=== PATIENT | female | born 1950 | race Caucasian/White ===

== ENCOUNTER 2017-11-13 00:10 | Inpatient (IN) | payer OTHER ==
[~2017-11-13] VITALS: Ht 152.4 cm; Wt 49.5 kg
[2017-11-13] VITALS (9 sets, daily range): BP systolic 96–206; BP diastolic 41–92
[~2017-11-13 00:10] MED LIST: ALBUTEROL2.5 MG/0.5 INH; ASPIR 8181 MG PO; ASPIRIN325 PO; AZITHROMYCIN 2250 MG; AZITHROMYCIN 2250 MG PO; CARDIZEM CD120 MG PO; DILTIAZEM 24HR120 M2 PO; DOXYCYCLINE 10100 MG PO; DUONEB 2.5-0.5 M3 ML INH; FOLIC ACID1 MG PO; HYDROCODONE-APA1 TA1 PO; LEVAQUIN 500 M500 M2 PO; LEVAQUIN 750 M750 MG PO; MEDROLDOSEPACK PO; MINOCYCLINE HC100 M2 PO; PREDNISONE 10 M10 MG; PREDNISONE 10 M10 MG PO; PREDNISONE 20 M20 MG PO; PREDNISONE10 MG PO; PREDNISONE50 MG PO; PROAIR HFA8.5 GM INH; PROPAFENONE 15150 MG PO; PROTONIX40 M1 PO; TENORMIN25 MG PO; TENORMIN50 MG PO; VENTOLIN HFA 1818 GM INH; VITAMIN B-1100 M1 PO
[2017-11-13] MEDS ORDERED: PROAIR HFA8.5 GM INH (00:16)
[2017-11-13 00:37] LABS: HEMATOCRIT 40.4 % (37.0-47.0); HEMOGLOBIN 13.2 gm/dL (12.0-15.0); MCH 30.6 pg (26.0-34.0); MCHC 32.7 g/dL (28.0-37.0); MCV 93.6 fL (80.0-100.0); MPV 7.5 fl. (7.2-11.1); NUCLEATED RBCS 0 /100WBC; PLATELET COUNT* 261 thou/uL (150-400); RBC 4.31 mil/uL (4.20-5.00); RDW-CV 14.6 % (10.5-14.5); WBC 9.4 thou/uL (4.0-11.0)
[2017-11-13 00:47] LABS: ANION GAP 4 mmol/L (7-16); BUN 12 mg/dL (7-18); CALCIUM 9.1 mg/dL (8.5-10.1); CHLORIDE 102 mmol/L (98-107); CO2 37 mmol/L (21-32); CREATININE 0.6 mg/dL (0.6-1.3); GLUCOSE 142 mg/dL (70-99); POTASSIUM 3.9 mmol/L (3.5-5.1); SODIUM 143 mmol/L (136-145)
[2017-11-13 00:50] LABS: PROTIME 9.5 Seconds (9.20-11.50)
[2017-11-13 00:58] LABS: ALBUMIN 3.8 g/dL (3.4-5.0); ALKALINE PHOSPHATASE 139 U/L (46-116); NT-PRO BRAIN NAT PEPTIDE 39 pg/mL (<300); SGOT 18 U/L (15-37); SGPT 10 U/L (30-65); TOTAL BILIRUBIN 0.3 mg/dL (<0.1-1.0); TOTAL PROTEIN 7.9 g/dL (6.4-8.2); TROPONIN-I LEVEL <0.06 ng/mL (<0.06)
[2017-11-13 01:34] LABS: BE 6.7 mmol/L (-2 to +3); HCO3 33.5 mmol/L (22.0-26.0); PO2 69.4 mmHg (75.0-100.0); pH 7.379 (7.340-7.450)
[2017-11-13 01:34] LABS: ABSOLUTE BASOPHILS 0.1 thou/uL (0.0-0.2); ABSOLUTE MONOCYTES 0.3 thou/uL (0.0-1.2); PLATELET ESTIMATE ADEQUATE; TOXIC GRANULATION 1+
[2017-11-13 01:38] LABS: PCO2 58.1 mmHg (35.0-45.0)
--- NOTE | 2017-11-13 04:52 | NUR ---
PT ADMIT TO ROOM 210. PT ALERT ORIENTED. AMBULATED FROM CART TO BED STEADY GAIT. VERY SOB WITH ANY ACTIVITY. INITALLY O2 AT 2.5 LITERS NC. HAD TO INCREASE TO 3.5 TO HELP RECOVER FROM TRANSFER TO BED. BACK DOWN TO 2.5. TELEMETRY SHOWS SR/ST 90S TO 110. GIGI LEG EDEMA WITH BRUSING ON L 1&2 TOE. US ORDERED OF LOWER EXT. DENIES PAIN. WILL CONTINUE TO MONITOR.
--- NOTE | 2017-11-13 08:30 | NUR ---
RECIEVED REPORT FROM ARIES AND ASSUMED CARE OF PT @ 7412.PT IS A/O X4,VSS,TRACING SR ON MONITOR.LUNG SOUNDS ARE COARSE DIMINSHED WITH LOOSE COUGH.O2 SAT 100% ON 2L O2 NC.PT STATES LAST BM WAS THIS MORNING.IV LEFT HAND PATENT AND SALINE LOCKED.PT IS CALM AND COOPERATIVE WITH NO C/O PAIN AT TIME OF ASSESSMENT.PT IS UP WITH ASSIST TO BSC DUE TO SOA WITH EXERTION. PT HAS VENOUS/ARTERIAL DOPPLER US SCHEDULED TO RULE OUT DVT.PT INFORMED OF PLAN OF CARE AND COMMUNICATES UNDERSTANDING. WILL CONTINUE TO MONITOR.PT LEFT RESTING BED WITH CALL LIGHT WITHIN REACH.
[2017-11-13 13:12] LABS: URINE BILIRUBIN NEGATIVE (Negative); URINE BLOOD NEGATIVE (Negative); URINE CLARITY CLEAR; URINE COLOR YELLOW; URINE GLUCOSE-RANDOM NEGATIVE (Negative); URINE KETONES TRACE (Negative); URINE LEUKOCYTES-REFLEX NEGATIVE (Negative); URINE NITRITE-REFLEX NEGATIVE (Negative); URINE PROTEIN TRACE (Negative); URINE SPECIFIC GRAVITY 1.015 (1.005-1.030); URINE UROBILINOGEN 0.2 E.U./dl (0.2-1.0)
--- NOTE | 2017-11-13 15:48 | NUR ---
CM ASSESSMENT: Pt is A&O. Resides at home and dtr lives with her. Pt is independent with ADLs. Dtr and nephew assist as needed. Pt wears home o2 through [employer]. No hx of HH or SNF. Pt interested in SNF at [place] or . PT/OT to [facility]. Following.
--- NOTE | 2017-11-13 17:19 | 2DMMODE ---
[place] [address] 2 D/M-MODE ECHOCARDIOGRAM Name: BRENT ROLDAN Room: [address] IN [facility]#: [id number] Admission: 11/13/17 Attend Phys: Zulema Kingston, Discharge: Date of : 54 Date of Service: 11/13/17 1718 Report #: [id number] THIS REPORT FOR: //name// APPROVED REPORT Study performed: 11/13/2017 10:54:18 EXAM: Comprehensive 2D, Doppler, and color-flow Echocardiogram Patient Location: In-Patient Room #: [facility] Status: routine BSA: 1.35 HR: 78 bpm BP: 123/68 mmHg Rhythm: NSR Other Information Study Quality: Good Indications Congestive Heart Failure Dyspnea 2D Dimensions LVEF(%): 64.90 (>50%) IVSd: 7.42 (7-11mm) LVOT Diam: 19.48 (18-24mm) LVDd: 40.92 mm PWd: 8.39 (7-11mm) LVDs: 26.56 (25-40mm) Aortic Root: 25.79 mm Au's LVEF: 64.90 % Volumes Left Atrial Volume (Systole) LA ESV Index: 23.70 mL/m2 Aortic Valve AoV Peak Owen.: 1.53 m/s AO Peak Gr.: 9.41 mmHg LVOT Max P.02 mmHg AO Mean Gr.: 4.61 mmHg LVOT Mean P.66 mmHg LVOT Max V: 1.32 m/s AO V2 VTI: 26.28 cm LVOT Mean V: 0.73 m/s ROSIO (VTI): 3.10 cm2 LVOT V1 VTI: 27.37 [place] [address] 2 D/M-MODE ECHOCARDIOGRAM Name: BRENT ROLDAN Room: [address] IN ..#: [id number] Admission: 11/13/17 Attend Phys: Zulema Kingston, Discharge: Date of : 54 Date of Service: 11/13/17 1718 Report #: [id number] E/A Ratio: 1.03 MV Decel. Time: 180.26 ms MV E Max Owen.: 0.88 m/s MV PHT: 52.28 ms MVA (PHT): 4.21 cm2 TDI E/Lateral E': 8.80 E/Medial E': 6.77 Medial E' Owen.: 0.13 m/s Lateral E' Owen.: 0.10 m/s Pulmonary Valve PV Peak Owen.: 0.82 m/s PV Peak Gr.: 2.68 mmHg Tricuspid Valve TR Peak Gr.: 29.32 mmHg RVSP: 34.00 mmHg Left Ventricle The left ventricle is normal size. There is normal LV segmental wall motion. There is normal left ventricular wall thickness. Left ventricular systolic function is normal. The left ventricular ejection fraction is within the normal range. LVEF is 65%. The left ventricular diastolic function is normal. Right Ventricle The right ventricle is normal size. The right ventricular systolic function is normal. Atria The left atrium size is normal. The right atrium size is normal. Aortic Valve The aortic valve is normal in structure. No aortic regurgitation is present. There is no aortic valvular stenosis. Mitral Valve The mitral valve is normal in structure. There is no mitral valve regurgitation noted. No evidence of mitral valve stenosis. Tricuspid Valve The tricuspid valve is normal in structure. Trace tricuspid regurgitation. The RVSP is 30-35 mmHg. Pulmonic Valve The pulmonary valve is normal in structure. [place] [address] 2 D/M-MODE ECHOCARDIOGRAM Name: ROLDANBRENT Latha Room: [address] IN [facility]#: [id number] Admission: 11/13/17 Attend Phys: Zulema Kingston, Discharge: Date of : 54 Date of Service: 11/13/17 1718 Report #: [id number] valvular regurgitation. Great Vessels The aortic root is normal in size. IVC is normal in size and collapses with >50% inspiration Pericardium There is no pericardial effusion. <Conclusion> The left ventricle is normal size. There is normal left ventricular wall thickness. Left ventricular systolic function is normal. The left ventricular ejection fraction is within the normal range. LVEF is 65%. The left ventricular diastolic function is normal. The right ventricle is normal size. The left atrium size is normal. The aortic valve is normal in structure. The mitral valve is normal in structure. The tricuspid valve is normal in structure. Trace tricuspid regurgitation. The RVSP is 30-35 mmHg. IVC is normal in size and collapses with >50% inspiration There is no pericardial effusion. There is normal LV segmental wall motion. <ELECTRONICALLY SIGNED> By: Juanjo Fair MD, FACC 11/13/171717 17 17 Juanjo Fair MD, FACC /INF
--- NOTE | 2017-11-13 17:38 | NUR ---
VSS,CARDIAC MONITORING IN PLACE WITH NO CHANGES THROUGHOUT SHIFT.PT REMAINS ON 2L O2 NC.PT HAS DENIED PAIN THROUGHOUT SHIFT.PT COMPLETED CTA AND ULTRASOUND OF BILATERAL LOWER EXTREMITY REFER TO RESULTS.VASCULAR CONSULT PER DOCTOR ORDERS.PT PROGRESSING TOWARDS GOALS.PT INFORMED OF PLAN OF CARE AND COMMUNICATES UNDERSTANDING.PT GETS UP TO BSC WITH ASSIST OF ONE.HOURLY ROUNDING COMPLETED FOR PT SAFETY. CALL LIGHT WITHIN REACH.WILL CONTINUE TO MONITOR FOR DURATION OF SHIFT.
--- NOTE | 2017-11-14 03:14 | NUR ---
ASSUMED CARE OF PT AT 1900. PT IS ALERT AND ORIENTED. VSS. PERRLA. NO COMPLAINTS OF PAIN. UP WITH STAND BY ASSIST. PT IS CURRENTLY ON 2 LITERS OF O2 AND GETS VERY SOA WITH ANY EXERTION. PT IS IN SINUS RYTHM ON THE TELEMETRY. PT IS RESTING COMFORTABLY IN BED. RESPIRATIONS ARE EVEN AND NONLABORED. WILL CONTINUE TO MONITOR PT.
[2017-11-14 03:49] VITALS: BP 122/61
[2017-11-14 05:25] LABS: ABSOLUTE LYMPHOCYTES 0.3 thou/uL (0.8-5.3); ABSOLUTE MONOCYTES 0.2 thou/uL (0.0-1.2); ABSOLUTE NEUTROPHILS 4.7 thou/uL (1.6-8.1); BASOPHILS 0.1 %; HEMATOCRIT 35.1 % (37.0-47.0); HEMOGLOBIN 11.4 gm/dL (12.0-15.0); LYMPHOCYTES 5.5 %; MCH 30.5 pg (26.0-34.0); MCHC 32.5 g/dL (28.0-37.0); MCV 93.9 fL (80.0-100.0); MONOCYTES 3.3 %; MPV 7.6 fl. (7.2-11.1); NUCLEATED RBCS 0 /100WBC; PLATELET COUNT* 196 thou/uL (150-400); POLYS 91.1 %; RBC 3.74 mil/uL (4.20-5.00); WBC 5.2 thou/uL (4.0-11.0)
[2017-11-14 05:45] LABS: CALCIUM 8.9 mg/dL (8.5-10.1); CREATININE 0.8 mg/dL (0.6-1.3); POTASSIUM 4.6 mmol/L (3.5-5.1)
[2017-11-14 08:15] VITALS: BP 150/64
[2017-11-14 11:31] VITALS: BP 134/67
[2017-11-14 15:53] VITALS: BP 109/56
--- NOTE | 2017-11-14 16:53 | NUR ---
ASSUMED TRANSFER OF CARE AT 1300. AGREE WITH PREVIOUS NURSES ASSESSMENT. ALERT AND ORIENTED X4 AND VSS ON 2 LITERS 02 VIA NASAL CANULA AND IS NSR ON THE MONITOR. IV ANTIBIOTICS INFUSED ORDERED. PATIENT HAS NO PEODUCTIVE COUGH, COURSE LUNG SOUNDS AND HAS SOA UPON EXERTION. PATIENT HAS REDNESS AND SLIGHT EDEMA IN BILATERAL LOWER EXTRMITIES. SUPPORTIVE FAMILY HAS BEEN IN AND OUT THROUGHOUT THE DAY TODAY. PATIENT IS RESTING COMFORTABLY IN BED AT THIS TIME, CALL LIGHT PLACED IN REACH AND NURSING WILL CONTINUE TO MONITOR.
--- NOTE | 2017-11-14 17:19 | EKG ---
[place] [address] ELECTROCARDIOGRAM REPORT Name: BRENT ORLDAN Room: [address] ADM IN [facility].#: [id number] Admission: 11/13/17 Attend Phys: Zulema Kingston MD Discharge: Date of : 54 Report #: [id number] THIS REPORT FOR: //name// [facility] ED Test Date: 2017-11-13 Test Time: 01:01:03 Pat Name: BRENT JAMAR Department: Room: [facility] Gender: F Supervisor Of Research: BRIDGET : 1950 Requested By: Lindsey Altamirano Order Number: [id number] MD: Phoenix Louis Measurements Intervals Buhler Rate: 112 P: MT: QRS: 38 QRSD: 106 T: -19 QT: 301 QTc: 411 Interpretive Statements Sinus rhythm with short MT interval Possible anterior infarct, old Artifact in lead(s) I,III,aVR,aVL,V1,V2,V3,V4 Compared to ECG 10/05/2016 01:06:24 Myocardial infarct finding now present Sinus rhythm no longer present Electronically Signed On 11-14-2017 17:18:51 CDT by Phoenix Louis [email or web address] <ELECTRONICALLY SIGNED> By: Phoenix Louis MD, FACC 11/14/17 1718 0 0 Phoenix Louis MD, FACC /EPI
[2017-11-14 19:45] VITALS: BP 110/54
[2017-11-15] VITALS: BP 137/61
--- NOTE | 2017-11-15 01:49 | NUR ---
ASSUMED CARE OF PT AT 1900. PT IS ALERT AND ORIENTED. VSS. PERRLA. NO COMPLAINTS OF PAIN. UP WITH 1 ASSIST. PT IS IN SINUS RYTHM ON THE TELEMETRY. PT IS RESTING COMFORTABLY IN BED. RESPIRATIONS ARE EVEN AND NONLABORED. WILL CONTINUE TO MONITOR PT.
[2017-11-15 04:00] VITALS: BP 118/59
[2017-11-15 05:04] LABS: ABSOLUTE LYMPHOCYTES 0.8 thou/uL (0.8-5.3); ABSOLUTE MONOCYTES 0.4 thou/uL (0.0-1.2); ABSOLUTE NEUTROPHILS 4.5 thou/uL (1.6-8.1); BASOPHILS 0.5 %; EOSINOPHILS 0.1 %; HEMATOCRIT 34.7 % (37.0-47.0); HEMOGLOBIN 11.4 gm/dL (12.0-15.0); MCH 30.9 pg (26.0-34.0); MCHC 32.9 g/dL (28.0-37.0); MONOCYTES 7.1 %; MPV 7.3 fl. (7.2-11.1); NUCLEATED RBCS 0 /100WBC; PLATELET COUNT* 175 thou/uL (150-400); POLYS 78.3 %; RBC 3.69 mil/uL (4.20-5.00); RDW-CV 14.5 % (10.5-14.5); WBC 5.7 thou/uL (4.0-11.0)
[2017-11-15 06:42] LABS: ALBUMIN 2.8 g/dL (3.4-5.0); CALCIUM 8.5 mg/dL (8.5-10.1); CREATININE 0.8 mg/dL (0.6-1.3); POTASSIUM 3.8 mmol/L (3.5-5.1); TOTAL BILIRUBIN 0.1 mg/dL (<0.1-1.0); TOTAL PROTEIN 5.6 g/dL (6.4-8.2)
[2017-11-15 08:00] VITALS: BP 154/77
[2017-11-15 12:24] VITALS: BP 149/52
[2017-11-15 17:02] VITALS: BP 173/92
--- NOTE | 2017-11-15 18:43 | NUR ---
PATINET RESTING IN BED. UP TO BATHROOM WITH STANDBY ASSIST AND WALKER USAGE. AXO4 AND PATINET APPROPRIATE. IV ABX ORDERED. PAITNET IS UTILIZING 3L PER NC. VITAL SIGNS STABLE AND PATIENT IN NOAPPARENT SIGNS OF DISTRESS AT THIS TIME. CT C RUNOFF WAS COMPLETD TODAY. HOURKY ROUNDING COMPLETED FOR PATIENT SAFETY AND PATIENT IS PROGRESSING TOWARDS GOALS.
[2017-11-15 20:00] VITALS: BP 143/76
[2017-11-16] VITALS: BP 96/47
--- NOTE | 2017-11-16 02:06 | NUR ---
AT 0105, NOTIFIED DR. AG OF NOT ABLE TO PLACE PERIPHERAL IV IN PT. TO PLACE PERIPHERAL IV IN PATIENT. PT UPSET, STATED SHE REFUSED TO ALLOW ANYONE ELSE TO ATTEMPT TO PLACE IV AT THIS TIME. SPOKE WITH DR. AG, NO NEW ORDERS RECEIVED, STATED OK TO WAIT UNTIL MORNING.
--- NOTE | 2017-11-16 03:56 | NUR ---
ASSUMED CARE OF PT AT 1930. NURSING ASSESSMENT COMPLETED AT START OF SHIFT, PT VOICED NO CONCERNS, HOURLY ROUNDING COMPLETED, PT TRACING SINUS RHYTHM ON DIRECTOR OF WORKFORCE DEVELOPMENT THIS SHIFT. DENIES PAIN, CALL LIGHT WITHIN REACH.
[2017-11-16 04:00] VITALS: BP 122/71
[2017-11-16 05:08] LABS: ABSOLUTE LYMPHOCYTES 0.7 thou/uL (0.8-5.3); ABSOLUTE MONOCYTES 0.5 thou/uL (0.0-1.2); ABSOLUTE NEUTROPHILS 3.5 thou/uL (1.6-8.1); EOSINOPHILS 0.1 %; HEMATOCRIT 34.6 % (37.0-47.0); HEMOGLOBIN 11.4 gm/dL (12.0-15.0); LYMPHOCYTES 14.6 %; MCH 30.8 pg (26.0-34.0); MCHC 32.8 g/dL (28.0-37.0); MONOCYTES 10.1 %; MPV 7.2 fl. (7.2-11.1); NUCLEATED RBCS 0 /100WBC; PLATELET COUNT* 177 thou/uL (150-400); POLYS 75.2 %; RBC 3.68 mil/uL (4.20-5.00); RDW-CV 14.2 % (10.5-14.5); WBC 4.7 thou/uL (4.0-11.0)
[2017-11-16 05:18] LABS: CALCIUM 8.5 mg/dL (8.5-10.1); CREATININE 0.8 mg/dL (0.6-1.3); POTASSIUM 3.9 mmol/L (3.5-5.1)
[2017-11-16 08:00] VITALS: BP 160/95
--- NOTE | 2017-11-16 10:29 | NUR ---
Spoke with Pt regarding disposition, informed that she is unable to go to [facility] at [place]. Pt requested that CM speak with Charisse harrington. Contacted juany Mcqueen to tour [facility] and [facility] and let CM know which facility she prefers. Anticipate that Pt will be ready to dc tomorrow.
[2017-11-16 11:38] VITALS: BP 116/68
[2017-11-16 15:34] VITALS: BP 128/73
--- NOTE | 2017-11-16 18:50 | NUR ---
PATIENT RESTING IN BED. UP AD PRO WITH SUPPLEMENTAL OXYGEN. AOX4. HOURLY ROUNDING FOR PATIENT SAFETY AND PATIENT PROGRESSING TOWARDS GOALS. POSSIBLE DC TO SNF.
[2017-11-16 19:46] VITALS: BP 136/64
[2017-11-17] VITALS (7 sets, daily range): BP systolic 116–161; BP diastolic 62–77
--- NOTE | 2017-11-17 04:05 | NUR ---
ASSUMED CARE OF PT AT 1930, NURSING ASSESSMENT COMPLETED AT START OF SHIFT, PT VOICED NO CONCERNS THIS SHIFT, TRACING SINUS RHTYHM THIS SHIFT, HOURLY ROUNDING COMPLETED, CALL LIGHT WITHIN REACH, PT SLOWLY PROGRESSING TOWARDS GOALS.
--- NOTE | 2017-11-17 15:00 | NUR ---
Insurance denied Pt's skilled stay. Updated Dr, plan is for Pt to stay over night and dc home tomorrow with HH. Updated Pt's dtr, will fax orders to [facility] at [place]. Following.
--- NOTE | 2017-11-17 19:01 | NUR ---
PATIENT RESTING IN BED. UP AD LIBIN ROOM. OS AT 3L PER NASAL CANULA. EXPECTED DISCHARGE TO HOME WITH HOME HEALTH TOMORROW. HOURLKY ROUNDING COMPLETD FOR PATIENT SAFET AND PATIENT IS PROGRESSING TOWARDS GOALS.
[2017-11-18 03:58] VITALS: BP 132/78
--- NOTE | 2017-11-18 04:09 | NUR ---
ASSUMED CARE OF PT AT 1930, NURSING ASSESSMENT COMPLETED, PT ANXIOUS AT START OF SHIFT, MESSAGE SENT TO DR. COYLE AND NEW ORDER RECEIVED AT 2014. PT RESTING QUIETLY IN ROOM, XANAX EFFECTIVE, HOURLY ROUNDING COMPLETED, CALL LIGHT WITHIN REACH. DENIES PAIN THIS SHIFT.
[2017-11-18 07:59] VITALS: BP 139/74
--- NOTE | 2017-11-18 09:18 | NUR ---
ASSUMED CARE OF PATIENT AFTER REPORT THIS MORNING. PATIENT AWAKE, ALERT, AND ORIENTED APPROPRIATELY. PHYSICAL ASSESSMENT COMPLETED AND CHARTED. NO COMPLAINTS OF PAIN. GIVEN SCHEDULED MEDICATIONS, SEE EMAR FOR DOCUMENTATION. VITAL SIGNS STABLE. OXYGEN SATURATION WITHIN NORMAL LIMITS ON 3 LPM PER NASAL CANULA. PATIENT TRANSFERS TO BEDSIDE COMMODE INDEPENDENTLY. USES CALL LIGHT APPROPRIATELY, WITHIN REACH. DENIES NEEDS AT THIS TIME. NURSING WILL CONTINUE TO MONITOR.
[2017-11-18] MEDS ORDERED: DUONEB 2.5-0.5 M3 ML INH (09:43)
[2017-11-18] MEDS ORDERED: XANAX 0.25 MG0.25 MG PO (09:44)
[2017-11-18] MEDS ORDERED: AUGMENTIN 875-1 EACH PO (09:44)
[2017-11-18] MEDS ORDERED: PROTONIX40 M1 PO (09:45)
[2017-11-18] MEDS ORDERED: PREDNISONE 10 M10 MG PO (09:46)
[2017-11-18 09:49] VITALS: BP 139/74
--- NOTE | 2017-11-18 10:08 | NUR ---
Pt discharging to home today with [facility] . Faxed dc orders. Spoke with dtr Charisse, brigido and Pt are interested in LTC, [facility] may have a LTC bed available today, they will updated dtr once they confirm the availability. CM to fax facility order to if bed becomes available. Plan now is for family to cook pickled meat Pt at 1pm to transport home.
--- NOTE | 2017-11-18 12:22 | NUR ---
RECEIVED ORDERS TO DISCHARGE PATIENT HOME WITH HOME HEALTH. DISCHARGE PAPERWORK COMPLETED AND CHECKED BY SECOND NURSE, DISCUSSED WITH PATIENT, AND SIGNED BY ALL APPROPRIATE PARTIES. SCRIPTS GIVEN TO PATIENT ALONG WITH EDUCATION REGARDING THOSE PRESCRIPTIONS. THAT PAPERWORK IS SIGNED AND ON THE CHART WELL. IVS BEING DISCONTINUED AT THIS TIME. WAITING FOR PATIENT DAUGHTER TO ARRIVE TO TAKE HER HOME. NURSING WILL CONTINUE TO MONITOR UNTIL DISCHARGE.
--- NOTE | 2017-11-18 13:25 | NUR ---
PATIENT DISCHARGED AT THIS TIME. ESCORTED TO FRONT DOOR VIA WHEELCHAIR BY MORIS MA.
== END 2017-11-18 13:25 | disposition home health service (06) | DRG 177 ==
LOC: M.ERS 00:10 → M.TBA-ER 01:48 → M.2W 01:48 → M.ERS 02:44 → M.2W 02:55
PROVIDERS: Emergency Medicine; Internal Medicine; ADMIT Internal Medicine
PROC: B24BZZ4 Ultrasonography of Heart with Aorta, Transesophageal (ICD-10-PCS; principal; 2017-11-13)
DX: J15.6 Pneumonia due to other Gram-negative bacteria (principal); J96.21 Acute and chronic respiratory failure with hypoxia; J96.22 Acute and chronic respiratory failure with hypercapnia; E43 Unspecified severe protein-calorie malnutrition; J44.1 Chronic obstructive pulmonary disease with (acute) exacerbation; J44.0 Chronic obstructive pulmonary disease with (acute) lower respiratory infection; I71.4 Abdominal aortic aneurysm, without rupture; K86.9 Disease of pancreas, unspecified; I27.81 Cor pulmonale (chronic); F17.210 Nicotine dependence, cigarettes, uncomplicated; Z90.710 Acquired absence of both cervix and uterus; Z86.73 Personal history of transient ischemic attack (TIA), and cerebral infarction without residual deficits; Z85.828 Personal history of other malignant neoplasm of skin; Z79.82 Long term (current) use of aspirin; Z79.52 Long term (current) use of systemic steroids; Z79.899 Other long term (current) drug therapy; Z88.8 Allergy status to other drugs, medicaments and biological substances

== ENCOUNTER 2018-01-06 14:29 | Inpatient (IN) | payer OTHER ==
[~2018-01-06] VITALS: Ht 152.4 cm; Wt 46.7 kg
[~2018-01-06 14:29] MED LIST changes: +AUGMENTIN 875-1 EACH PO; +XANAX 0.25 MG0.25 MG PO
[2018-01-06 14:32] VITALS: BP 108/75
[2018-01-06] MEDS ORDERED: SYMBICORT160 MCG/4. INH (14:38)
[2018-01-06 15:14] LABS: HEMATOCRIT 36.5 % (37.0-47.0); HEMOGLOBIN 12.2 gm/dL (12.0-15.0); MCH 31.2 pg (26.0-34.0); MCHC 33.5 g/dL (28.0-37.0); MCV 93.1 fL (80.0-100.0); MPV 6.8 fl. (7.2-11.1); NUCLEATED RBCS 0 /100WBC; PLATELET COUNT* 173 thou/uL (150-400); RBC 3.92 mil/uL (4.20-5.00); RDW-CV 15.8 % (10.5-14.5); WBC 6.3 thou/uL (4.0-11.0)
[2018-01-06 15:23] LABS: CALCIUM 9.4 mg/dL (8.5-10.1); CREATININE 0.5 mg/dL (0.6-1.3); POTASSIUM 3.5 mmol/L (3.5-5.1)
[2018-01-06 15:28] LABS: ALBUMIN 3.3 g/dL (3.4-5.0); TOTAL BILIRUBIN 0.9 mg/dL (<0.1-1.0); TOTAL PROTEIN 7.1 g/dL (6.4-8.2)
[2018-01-06 15:39] LABS: URINE BILIRUBIN NEGATIVE (Negative); URINE BLOOD TRACE (Negative); URINE CLARITY CLEAR; URINE COLOR YELLOW; URINE GLUCOSE-RANDOM NEGATIVE (Negative); URINE KETONES 1+ (Negative); URINE LEUKOCYTES-REFLEX NEGATIVE (Negative); URINE NITRITE-REFLEX NEGATIVE (Negative); URINE PROTEIN NEGATIVE (Negative); URINE SPECIFIC GRAVITY 1.015 (1.005-1.030)
[2018-01-06 15:47] LABS: ABSOLUTE BASOPHILS 0.1 thou/uL (0.0-0.2); ABSOLUTE EOSINOPHILS 0.1 thou/uL (0.0-0.7); ABSOLUTE LYMPHOCYTES 0.6 thou/uL (0.8-5.3); ABSOLUTE MONOCYTES 0.4 thou/uL (0.0-1.2); ABSOLUTE NEUTROPHILS 5.1 thou/uL (1.6-8.1)
[2018-01-06 15:48] LABS: PLATELET ESTIMATE ADEQUATE
[2018-01-06 17:51] LABS: APTT 29.2 Seconds (25.0-31.3); PROTIME 9.6 Seconds (9.20-11.50)
[2018-01-06 18:52] VITALS: BP 108/75
[2018-01-06 18:57] VITALS: BP 166/80
[2018-01-06 20:00] VITALS: BP 148/67
[2018-01-07 00:02] VITALS: BP 92/53
[2018-01-07 04:16] VITALS: BP 94/57
[2018-01-07 04:23] LABS: HEMATOCRIT 31.3 % (37.0-47.0); HEMOGLOBIN 10.7 gm/dL (12.0-15.0); MCH 31.5 pg (26.0-34.0); MCHC 34.1 g/dL (28.0-37.0); MCV 92.4 fL (80.0-100.0); MPV 7.3 fl. (7.2-11.1); RBC 3.39 mil/uL (4.20-5.00); RDW-CV 15.7 % (10.5-14.5); WBC 4.8 thou/uL (4.0-11.0)
[2018-01-07 04:32] LABS: CALCIUM 8.5 mg/dL (8.5-10.1); CREATININE 0.6 mg/dL (0.6-1.3); MAGNESIUM 1.8 mg/dL (1.8-2.4); POTASSIUM 3.8 mmol/L (3.5-5.1)
[2018-01-07 07:30] VITALS: BP 99/59
[2018-01-07] MEDS ORDERED: LOVENOX40 MG/0.4 SUBQ (09:42)
[2018-01-07 16:23] VITALS: BP 96/54
[2018-01-08] VITALS: BP 132/67
[2018-01-08 04:03] LABS: HEMATOCRIT 28.6 % (37.0-47.0); HEMOGLOBIN 9.7 gm/dL (12.0-15.0); MCH 31.3 pg (26.0-34.0); MCHC 33.7 g/dL (28.0-37.0); MCV 92.9 fL (80.0-100.0); MPV 7.3 fl. (7.2-11.1); RBC 3.08 mil/uL (4.20-5.00); RDW-CV 15.3 % (10.5-14.5); WBC 4.3 thou/uL (4.0-11.0)
[2018-01-08 08:10] VITALS: BP 103/64
[2018-01-08] MEDS ORDERED: XARELTO20 MG PO (10:09)
[2018-01-08 10:39] VITALS: BP 103/64
[2018-01-08] MEDS ORDERED: VISTARIL50 MG PO (13:04)
[2018-01-08] MEDS ORDERED: MEDROLDOSEPACK PO (13:05)
== END 2018-01-08 17:20 | disposition home or self-care (01) | DRG 300 ==
LOC: M.ERS 14:29 → M.3W 17:37 → M.TBA-ER 17:37 → M.3W 18:51
PROVIDERS: Nurse Practitioner Family; ADMIT Internal Medicine
DX: I82.412 Acute embolism and thrombosis of left femoral vein (principal); J44.1 Chronic obstructive pulmonary disease with (acute) exacerbation; E44.1 Mild protein-calorie malnutrition; D68.59 Other primary thrombophilia; L03.116 Cellulitis of left lower limb; I82.432 Acute embolism and thrombosis of left popliteal vein; J45.909 Unspecified asthma, uncomplicated; I71.4 Abdominal aortic aneurysm, without rupture; I73.9 Peripheral vascular disease, unspecified; R32 Unspecified urinary incontinence; I10 Essential (primary) hypertension; F17.210 Nicotine dependence, cigarettes, uncomplicated; F41.9 Anxiety disorder, unspecified; I27.81 Cor pulmonale (chronic); E87.6 Hypokalemia; Z68.20 Body mass index [BMI] 20.0-20.9, adult; Z79.899 Other long term (current) drug therapy; Z88.8 Allergy status to other drugs, medicaments and biological substances; Z90.710 Acquired absence of both cervix and uterus; Z86.73 Personal history of transient ischemic attack (TIA), and cerebral infarction without residual deficits; Z85.07 Personal history of malignant neoplasm of pancreas